=== PATIENT | female | born 1985 | race African-American/Black ===

== ENCOUNTER 2018-11-08 08:22 | Emergency (ER) | payer MEDICAID ==
[~2018-11-08] VITALS: Ht 167.6 cm; Wt 75.0 kg
[2018-11-08 08:24] VITALS: BP 135/72
[2018-11-08] MEDS ORDERED: LORAZEPAM 2MG/ML CPJ IM ONE (09:15)
== END 2018-11-08 09:34 | disposition home or self-care (01) ==
LOC: ER 08:22
DX: F43.22 Adjustment disorder with anxiety (principal); J45.909 Unspecified asthma, uncomplicated
CPT/HCPCS: 96372; 99284; J2060

== ENCOUNTER 2019-05-24 11:22 | Emergency (ER) | payer MEDICAID ==
[~2019-05-24] VITALS: Ht 167.6 cm; Wt 74.0 kg
[2019-05-24 11:23] VITALS: BP 109/60
[2019-05-24] MEDS ORDERED: KETOROLAC 60MG/2ML VIAL IM STA (12:23)
[2019-05-24] MEDS ORDERED: HYDROCODONE/ACETAMINOPHEN 5/325MG TABLET PO STA (12:23)
[2019-05-24 12:32] LABS: CLARITY URINE CLEAR (CLEAR); COLOR URINE YELLOW (YELLOW); KETONES URINE TRACE (NEGATIVE); LEUKOCYTE ESTERASE URINE TRACE (NEGATIVE); NITRITE URINE NEGATIVE (NEGATIVE); OCCULT BLOOD URINE TRACE (NEGATIVE); PH URINE 5.5 (4.5-8.0); PROTEIN URINE NEGATIVE (NEGATIVE); SPECIFIC GRAVITY URINE 1.022 (1.005-1.030); UROBILINOGEN URINE 0.2 E.U./dL (0.2-1.0)
== END 2019-05-24 14:26 | disposition home or self-care (01) ==
LOC: ER 11:22
DX: M54.9 Dorsalgia, unspecified (principal); F41.9 Anxiety disorder, unspecified; J45.909 Unspecified asthma, uncomplicated
CPT/HCPCS: 72100; 81003; 81025; 96372; 99284; J1885

== ENCOUNTER 2023-11-10 19:27 | Emergency (ER) | payer MEDICAID, OTHER ==
[~2023-11-10] VITALS: Ht 157.5 cm; Wt 74.0 kg
[2023-11-10 19:36] VITALS: O2SAT 100
[2023-11-10] MEDS: KETOROLAC 30MG/ML VIAL IM ONE (21:00)
[2023-11-10] MEDS ORDERED: OFLO5DRO4 RIGHT EAR (21:01)
[2023-11-10] MEDS ORDERED: LEVO-65 MT (21:03)
[2023-11-10] MEDS ORDERED: ACET-2708 MT (21:03)
[2023-11-10] MEDS ORDERED: IBUP-2028 MT (21:03)
[2023-11-10 21:15] VITALS: BP 121/69; PULSE 84; RESP 16; TEMP 98.2
== END 2023-11-10 21:30 | disposition home or self-care (01) ==
LOC: ER 19:27
DX: H60.91 Unspecified otitis externa, right ear (principal); F41.9 Anxiety disorder, unspecified; J45.909 Unspecified asthma, uncomplicated
CPT/HCPCS: 99283; 96372; J1885